=== PATIENT | male | born 1945 | race Caucasian/White ===

== ENCOUNTER 2019-11-17 08:44 | Emergency (ER) | payer MEDICARE ==
[2019-11-17] MEDS ORDERED: Alum Hydrox/Mag Hydrox/Simeth 15 ML, Lidocaine 2% 15 ML PO ONE ×2 (09:45)
[2019-11-17] MEDS ORDERED: Pantoprazole 40 MG Tab.CR ONE (09:48)
[2019-11-17 10:24] VITALS: BP 162/82; PULSE 71
== END 2019-11-17 10:15 | disposition home or self-care (01) ==
LOC: JP.ED 08:44
DX: K29.70 Gastritis, unspecified, without bleeding (principal); F17.210 Nicotine dependence, cigarettes, uncomplicated; I25.2 Old myocardial infarction
CPT/HCPCS: 36415; 80048; 83690; 85025; 99284; A9270

== ENCOUNTER 2019-12-15 06:58 | Day surgery (SDC) | payer MEDICARE ==
[~2019-12-15 06:58] MED LIST: Midazolam 1 MG/ML 2 ML SDV ONE; Propofol 200 MG/20 ML SDV ONE; fentaNYL 100 MCG/2 ML SDV ONE
[2019-12-15] MEDS ORDERED: Dextrose 5%-Lactated Ringers 1,000 ML IV SCH (07:30)
[2019-12-15 10:28] VITALS: BP 130/68; PULSE 62
--- NOTE | 2019-12-29 14:11 | OR ---
DATE OF PROCEDURE: 12/15/2019 SURGEON: Jame Lopez MD PREOPERATIVE DIAGNOSIS: Probable gastroesophageal reflux disease. POSTOPERATIVE DIAGNOSES: 1. 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 2. Moderate distal gastritis. OPERATIVE PROCEDURE: Esophagogastroduodenoscopy with: 1. Biopsies of esophagogastric junction for histologic evaluation. 2. Biopsies of antrum for CLOtest. ANESTHESIA: IV sedation. INDICATION FOR PROCEDURE: This is a 74-year-old male presenting with some worsening reflux. He was started on omeprazole in the last week and it is felt that this is helpful only marginally. The plan is to proceed with upper GI endoscopy with biopsies and/or dilation as indicated. Potential risks including bleeding and perforation were discussed, and the patient wishes to proceed. DETAILS OF PROCEDURE: The patient was taken to the operating room and placed in a left lateral decubitus position. IV sedation was administered after which the upper GI endoscope was passed orally through the length of the esophagus into the stomach with retroflexion view of the fundus and thereafter through the pyloric channel and into the junction of the 3rd and 4th portions of the duodenum. Findings included normal hypopharynx, larynx, upper esophageal sphincter, and esophageal body. 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 No stricturing or plaquing or gross evidence of neoplasia was seen. Within the stomach, there was some moderate distal gastritis without erosions or ulcers. The pyloric channel and the visualized portions of the duodenum were otherwise unremarkable. At this point, biopsies were obtained from the antrum and sent for CLOtest for H. pylori. Multiple biopsies were then obtained from the esophagogastric junction and sent for histologic evaluation. Minimal bleeding from the biopsy sites was seen and the procedure then concluded. We will continue the present medical management and see the patient back on 12/23/2019 to determine ongoing treatment at that time. Jame Lopez MD /[id number]
== END 2019-12-15 10:50 | disposition home or self-care (01) ==
LOC: JP.SDS 06:58
PROVIDERS: ATTEND Surgery
DX: K29.50 Unspecified chronic gastritis without bleeding (principal); K21.0 Gastro-esophageal reflux disease with esophagitis; K44.9 Diaphragmatic hernia without obstruction or gangrene; K31.89 Other diseases of stomach and duodenum; I10 Essential (primary) hypertension; F41.9 Anxiety disorder, unspecified; I25.10 Atherosclerotic heart disease of native coronary artery without angina pectoris; Z88.8 Allergy status to other drugs, medicaments and biological substances
CPT/HCPCS: 43239; 87081; 88305; J2250; J2704; J3010; J7121

== ENCOUNTER 2019-12-31 07:46 | Inpatient (IN) | payer MEDICARE ==
[2019-12-31] MEDS: Dextrose 5%-Lactated Ringers 1,000 ML IV SCH ×3 (06:55→19:50)
[~2019-12-31 07:46] MED LIST changes: +Acetaminophen 500 MG Tab ONE; +Acetaminophen 500 MG Tab PO ONE; +Albuterol 8 GM Inhaler (PTOM) INH ONE; +Bupivacaine 0.5%/EPINEPHrine 1:200,000 50 ML MDV ONE; +Dexamethasone 4 MG/ML SDV ONE; +Glycopyrrolate 0.2 MG/ML 5 ML MDV ONE; +Ketamine 50 MG in Sodium Chloride 0.9% 49.5 ML IV SCH; +Ketamine 500 MG/5 ML MDV IV SCH; -Midazolam 1 MG/ML 2 ML SDV ONE; +Neostigmine Methylsulfate 1 MG/ML 5 ML Syringe ONE; +Ondansetron 4 MG/2 ML SDV ONE; +Rocuronium 50 MG/5 ML Vial ONE; +Scopolamine 1.5 MG Transdermal Patch TOP SCH; +Succinylcholine 200 MG/10 ML MDV ONE; +ceFAZolin 2 GM in Premix Bag 1 BAG IV ONE; +fentaNYL 250 MCG/5 ML SDV ONE
[2019-12-31] MEDS ORDERED: Sodium Chloride 0.9% 10 ML ONE (07:47)
[2019-12-31] MEDS ORDERED: ePHEDrine 50 MG/ML SDV ONE (07:47)
[2019-12-31] MEDS: Scopolamine 1.5 MG Transdermal Patch ONE (08:51)
[2019-12-31] MEDS ORDERED: HYDROmorphone 0.5 MG/0.5 ML Syringe IVPUSH PRN (10:00)
[2019-12-31] MEDS ORDERED: HYDROmorphone 2 MG Tab PO PRN (10:00)
[2019-12-31] MEDS ORDERED: HYDROmorphone 1 MG/ML Syringe IV PRN (10:00)
[2019-12-31] MEDS ORDERED: Ondansetron 4 MG/2 ML SDV IVPUSH PRN (10:00)
[2019-12-31] MEDS ORDERED: hydrOXYzine HCL 100 MG/2 ML SDV IM PRN (10:00)
[2019-12-31] MEDS ORDERED: Albuterol 8 GM Inhaler INH PRN (10:03)
[2019-12-31] MEDS ORDERED: Pantoprazole 40 MG Vial IVPUSH SCH (11:00)
[2019-12-31] MEDS: Acetaminophen 500 MG Tab PO SCH ×2 (11:29→17:34)
[2019-12-31] MEDS: Metoclopramide 10 MG/2 ML SDV IVPUSH SCH ×2 (11:29→19:20)
[2019-12-31] MEDS: BUSPIRONE PO SCH ×4 (14:26→21:08)
[2019-12-31] MEDS: Simvastatin 20 MG Tab PO SCH (21:09)
[2020-01-01] MEDS: Acetaminophen 500 MG Tab PO SCH ×4 (00:42→18:06)
[2020-01-01] MEDS: Metoclopramide 10 MG/2 ML SDV IVPUSH SCH ×3 (04:39→19:53)
[2020-01-01] MEDS: Dextrose 5%-Lactated Ringers 1,000 ML IV SCH (04:47)
[2020-01-01] MEDS ORDERED: Ondansetron 4 MG Tab.DIS PO PRN (07:23)
--- NOTE | 2020-01-01 08:26 | PN ---
DATE OF SERVICE: 01/01/2020 SUBJECTIVE: Kedar Garcia is postoperative day #1 following a laparoscopic Jose fundoplication. He reports he is having no pain, tolerating a clear liquid diet well. Oral intake 780, urine output 1500. He has been up ambulating and vital signs have been stable. OBJECTIVE: GENERAL: Kedar Garcia is a pleasant 74-year-old male. He is alert and oriented, resting comfortably in bed. VITAL SIGNS: TPR at 04:41, 98.1; 77; 18; blood pressure 120/82. HEENT: Negative. NECK: Supple. HEART: Regular rate and rhythm. LUNGS: Clear. ABDOMEN: Dressing dry and intact. Abdominal binder is on. EXTREMITIES: Without peripheral edema. ASSESSMENT: Laparoscopic Jose fundoplication with repair of paraesophageal diaphragmatic hernia with mesh and excision of mediastinal lipoma for gastroesophageal reflux disease refractory to medical management with paraesophageal diaphragmatic hernia and mediastinal lipoma. Date of procedure: 12/31/2019. Surgeon: Jame Lopez MD. PLAN: 1. Dressing off, may shower. 2. Full liquid diet. 3. Zofran ODT 4 mg every 4 hours p.r.n. nausea. 4. Convert IV to saline lock if oral intake adequate. 5. Dietary consult for new laparoscopic Jose. 6. We will evaluate p.r.n. or in a.m. Elsa Zambrano PA-C /[id number]
[2020-01-01] MEDS: Aspirin 325 MG Tab.EC PO SCH (08:39)
[2020-01-01] MEDS: BUSPIRONE PO SCH ×6 (08:39→21:10)
[2020-01-01] MEDS: amLODIPine 5 MG Tab PO SCH (08:40)
[2020-01-01] MEDS: Losartan 50 MG Tab PO SCH (08:40)
[2020-01-01] MEDS: SCOPOLAMINE PATCH CHECK TOP SCH (08:41)
[2020-01-01] MEDS: Metoprolol Succinate 50 MG Tab.ER PO SCH (08:41)
[2020-01-01] MEDS: Scopolamine 1.5 MG Transdermal Patch ONE (09:20)
[2020-01-01] MEDS ORDERED: Pantoprazole 40 MG Delayed-Release Granules 1 Packet PO SCH (11:30)
[2020-01-01] MEDS: Simvastatin 20 MG Tab PO SCH (21:10)
[2020-01-02] MEDS: Acetaminophen 500 MG Tab PO SCH ×2 (00:24→07:27)
[2020-01-02 04:20] VITALS: BP 148/71
[2020-01-02] MEDS: Metoclopramide 10 MG/2 ML SDV IVPUSH SCH (04:20)
[2020-01-02] MEDS: Metoprolol Succinate 50 MG Tab.ER PO SCH (08:25)
[2020-01-02] MEDS: Aspirin 325 MG Tab.EC PO SCH (08:25)
[2020-01-02] MEDS: BUSPIRONE PO SCH ×2 (08:26)
[2020-01-02] MEDS: amLODIPine 5 MG Tab PO SCH (08:26)
[2020-01-02] MEDS: Losartan 50 MG Tab PO SCH (08:26)
[2020-01-02] MEDS: SCOPOLAMINE PATCH CHECK TOP SCH (08:27)
[2020-01-02 08:28] VITALS: PULSE 78
[2020-01-02] MEDS ORDERED: Silver Sulfadiazine 1% Crm 50 GM Tube TOP SCH (09:00)
--- NOTE | 2020-01-04 09:14 | DISCH ---
ADMISSION DIAGNOSES: 1. Gastroesophageal reflux disease refractory to medical management. 2. Essential hypertension. 3. General anxiety disease. 4. Peripheral vascular disease. 5. Coronary atherosclerosis. 6. Hypothyroidism. DISCHARGE DIAGNOSES: Laparoscopic Jose fundoplication with: 1. Repair of paraesophageal diaphragmatic hernia with mesh. 2. Excision of mediastinal lipoma. POSTOPERATIVE DIAGNOSES: 1. Gastroesophageal reflux disease refractory to medical management. 2. Paraesophageal diaphragmatic hernia. 3. Mediastinal lipoma. 4. Date of procedure: 12/31/2019. Surgeon: Jame Lopez MD. HISTORY: Kedar Garcia is a pleasant 74-year-old male who had gastroesophageal reflux disease refractory to medical management. After preoperative evaluation and discussion of possible risks and possible complications, he wished to proceed with surgical procedure. HOSPITAL COURSE: Kedar had his surgery on 12/31/2019. He had no operative complications. On postoperative day #1, he was started on a full liquid diet. He received dietary instruction. Oral intake was adequate that his IV was saline locked. Activity was good. He had no pain. On postoperative day #2, he was able to be discharged to home without any complications. PHYSICAL EXAMINATION: GENERAL: Kedar Garcia is a 74-year-old male. He is alert and orientated. VITAL SIGNS: Height is 5 feet 6.93 inches, weight is 172 pounds. TPR at 0418 is 97.8; 58; 18; blood pressure 148/71. HEENT: Negative. NECK: Supple. HEART: Regular rate and rhythm. LUNGS: Clear. ABDOMEN: Incisions look good. Sutures intact. He does have the tape burn on his right and left lateral abdominal areas, each about 1 inch x 1-1/2 inches. EXTREMITIES: Without peripheral edema. DISPOSITION: Discharged to home. CONDITION: Stable and improving. FOLLOWUP APPOINTMENT: With lEsa Zambrano PA-C, on 01/14/2020 at 9:15 a.m. NEW PRESCRIPTIONS: 1. Silvadene cream apply twice daily to tape pope. 2. Levsin 0.125 mg sublingual every 4 hours if needed for esophageal spasms. 3. To resume home medication: a. Albuterol inhaler 1 to 2 puffs for shortness of breath. b. Aspirin 325 mg p.o. daily. c. Atrovent 0.06% nasal spray, 2 sprays 3 times a day. d. Levothyroxine 75 mcg before breakfast. e. Cozaar 100 mg oral daily. f. Melatonin 3 mg oral at bedtime. g. Metoprolol-XL 100 mg oral daily. h. Multivitamin 1 tablet oral daily. i. Omeprazole 40 mg oral daily. j. Viagra 50 mg oral p.r.n. k. Simvastatin 40 mg at bedtime. l. Valsartan 80 mg oral daily. m. Amlodipine 5 mg oral daily. n. Buspar 15 mg oral b.i.d. DIET: Full liquid diet for 2 weeks. Drink 8 to 10 glasses of water a day. ACTIVITY: No lifting greater than 10 pounds for 2 weeks. Other activity: Walk at least 6 times daily. Driving: Do not drive for 1 week. Shower/bathing: May shower. DISCHARGE INSTRUCTIONS: 1. Notify provider if any fever, increased pain, swelling, redness, nausea, or vomiting. 2. Wound incision care; keep site clean and dry. 3. Wear an abdominal binder for 2 weeks and then as tolerated. 4. Use silvadene cream to tape pope, apply twice daily. SPECIAL INSTRUCTION: Use incentive spirometer 10 times every hour while awake.
--- NOTE | 2020-01-06 18:05 | OR ---
DATE OF PROCEDURE: 12/31/2019 SURGEON: Jame Lopez MD PREOPERATIVE DIAGNOSIS: Gastroesophageal reflux disease refractory to medical management. POSTOPERATIVE DIAGNOSES: 1. Gastroesophageal reflux disease refractory to medical management with associated paraesophageal diaphragmatic hernia. 2. Mediastinal lipoma. OPERATIVE PROCEDURES: 1. Laparoscopic Jose fundoplication with repair of paraesophageal diaphragmatic hernia with mesh (56098). 2. Excision of mediastinal lipoma (89952). ANESTHESIA: General. APARTMENT HOTEL MANAGER: Elsa Zambrano PA-C INDICATIONS FOR PROCEDURE: This is a 74-year-old male presenting with gastroesophageal reflux disease that has become refractory to medical management. After preoperative evaluation and discussion, he wished to proceed with a Jose fundoplication. Potential risks including bleeding, infection, injury to underlying viscera, problems with fundoplication such as dysphagia, gas-bloat syndrome, disorders of gastric emptying rate as well as possibility of incomplete relief of reflux symptoms were all reviewed, and the patient wishes to proceed. DETAILS OF PROCEDURE: The patient was taken to the operating room and after general endotracheal anesthesia was induced and placed in a lithotomy position, the abdomen was prepped and draped. 15 cm inferior and 5 cm left of the xiphoid process, a transverse incision was made. The peritoneal cavity entered under direct vision with an Optiview trocar, inflated to 15 mmHg pressure with CO2. Laparoscope was then reinserted. No underlying trocar insertion site injuries were seen. Following this, four additional trocars were placed across the upper and mid abdomen. General exploration was undertaken. Upon elevation of the liver, the patient was noted to have a significant paraesophageal component of the hernia with a prolapse of some perigastric fat, omentum, and the gastric fundus in the plane anterior portion esophagus. This was reduced and the peritoneum reflected downward and the crura then from the distal esophagus on each side and then a retroesophageal window constructed, all with the aid of a Harmonic scalpel. Some additional attachments to the esophagus were then freed up as well allowing roughly 5 cm intraabdominal esophageal length to be obtained. At this point, during the course of the dissection, mediastinal lipoma was encountered and to facilitate more adequate crural repair this was excised. The crural repair was then accomplished with some 0 Ethibond sutures, reinforced with PTFE pledgets. Due to the degree of the herniation, Phasix ST mesh was then used to augment the repair. This was cut in a horseshoe type pattern with the mesh overlying the crural repair and snugly onto the sides of the crura and was fixed with titanium tacking screws. The greater omentum was then divided away from the greater curvature of the stomach with Harmonic scalpel. This dissection continued proximally to include the short gastric vessels including the highest and posterior short gastric vessels. Good mobilization of the fundus resulted at this point and was retrieved through the retroesophageal window. Anesthesia then placed a guidewire orally through the length of the esophagus into the stomach and over this a 54-Pashto Savary dilator was placed and a three-stitch 2 cm fundoplication was accomplished with 0 Ethibond sutures, reinforced with PTFE pledgets. Each of the sutures included bites of the underlying esophagus to help fix it in position and two sutures were then placed bringing the fundoplication overlying diaphragm to help to fix it in position as well with the same stitch-pledget combination. At that point, no further problems were noted. Trocars were removed. Peritoneal cavity deflated. After that, the guidewire then removed and the fundoplication was then evaluated and found to be satisfactorily floppy. Prior to closure, bilateral transversus abdominis plane blocks were then placed and the skin was closed with 4-0 Vicryl skin stitch. The patient was taken to the recovery room in satisfactory condition. Physician clinical laboratory assistant, Elsa Zambrano, played an essential role in assisting in this case, helping to position the patient, retract structures as needed, as well as suturing and cutting sutures when indicated. Her presence improved patient safety and decreased the operative time. Jame Lopez MD /[id number]
== END 2020-01-02 09:06 | disposition home or self-care (01) | DRG 328 ==
LOC: JP.SDS 07:46 → JP.SDSSCHI 07:46 → JP.MS 09:00 → EDSTATUS 09:45
PROVIDERS: ADMIT Surgery; ATTEND Surgery
PROC: 0DV44ZZ Restriction of Esophagogastric Junction, Percutaneous Endoscopic Approach (ICD-10-PCS; principal; 2019-12-31)
PROC: 0BQT4ZZ Repair Diaphragm, Percutaneous Endoscopic Approach (ICD-10-PCS; 2019-12-31)
PROC: 0JB63ZZ Excision of Chest Subcutaneous Tissue and Fascia, Percutaneous Approach (ICD-10-PCS; 2019-12-31)
DX: K21.9 Gastro-esophageal reflux disease without esophagitis (principal); I10 Essential (primary) hypertension; F41.1 Generalized anxiety disorder; I73.9 Peripheral vascular disease, unspecified; I25.10 Atherosclerotic heart disease of native coronary artery without angina pectoris; E03.9 Hypothyroidism, unspecified; D17.1 Benign lipomatous neoplasm of skin and subcutaneous tissue of trunk; K44.9 Diaphragmatic hernia without obstruction or gangrene
CPT/HCPCS: 36415; 80053; 83735; 83880; 84100; 85027; 88304; 93010; 94640; 94762; A9270-GY; C1713; C1781; C9113; J0171; J0330; J0690; J1100; J2405; J2704; J2710; J2765; J2795; J3010; J3490; J7050; J7121

== ENCOUNTER 2021-09-08 07:46 | Day surgery (SDC) | payer MEDICARE ==
[~2021-09-08 07:46] MED LIST changes: -Acetaminophen 500 MG Tab ONE; -Acetaminophen 500 MG Tab PO ONE; -Albuterol 8 GM Inhaler (PTOM) INH ONE; -Bupivacaine 0.5%/EPINEPHrine 1:200,000 50 ML MDV ONE; -Dexamethasone 4 MG/ML SDV ONE; -Glycopyrrolate 0.2 MG/ML 5 ML MDV ONE; -Ketamine 50 MG in Sodium Chloride 0.9% 49.5 ML IV SCH; -Ketamine 500 MG/5 ML MDV IV SCH; +Midazolam 1 MG/ML 2 ML SDV ONE; -Neostigmine Methylsulfate 1 MG/ML 5 ML Syringe ONE; -Ondansetron 4 MG/2 ML SDV ONE; -Rocuronium 50 MG/5 ML Vial ONE; -Scopolamine 1.5 MG Transdermal Patch TOP SCH; -Succinylcholine 200 MG/10 ML MDV ONE; -ceFAZolin 2 GM in Premix Bag 1 BAG IV ONE; -fentaNYL 250 MCG/5 ML SDV ONE
[2021-09-08] MEDS ORDERED: Dextrose 5%-Lactated Ringers 1,000 ML IV SCH (08:15)
[2021-09-08] MEDS ORDERED: Pantoprazole 40 MG Vial IVPUSH ONE (10:21)
[2021-09-08 11:01] VITALS: BP 142/78; PULSE 61
== END 2021-09-08 11:14 | disposition home or self-care (01) ==
LOC: JP.SDS 07:46
PROVIDERS: ATTEND Surgery
DX: K22.70 Barrett's esophagus without dysplasia (principal); K21.9 Gastro-esophageal reflux disease without esophagitis; K44.9 Diaphragmatic hernia without obstruction or gangrene; K25.9 Gastric ulcer, unspecified as acute or chronic, without hemorrhage or perforation; I25.10 Atherosclerotic heart disease of native coronary artery without angina pectoris; I10 Essential (primary) hypertension; I73.9 Peripheral vascular disease, unspecified; E78.5 Hyperlipidemia, unspecified; Z88.8 Allergy status to other drugs, medicaments and biological substances
CPT/HCPCS: 87081; 88305; C9113; J2250; J2704; J3010; J7121

== ENCOUNTER 2023-09-03 08:11 | Day surgery (SDC) | payer MEDICARE ==
[~2023-09-03 08:11] MED LIST changes: -Midazolam 1 MG/ML 2 ML SDV ONE
[2023-09-03] MEDS ORDERED: Sodium Chloride 0.9% 1,000 ML IV SCH (08:45)
[2023-09-03 10:21] VITALS: BP 129/66; PULSE 55
== END 2023-09-03 10:39 ==
LOC: JP.SDS 08:11 → MERGE 09:30 → EDSEX 09:30 → JP.SDS 10:39
PROVIDERS: ATTEND Surgery
DX: Z12.11 Encounter for screening for malignant neoplasm of colon (principal); D12.2 Benign neoplasm of ascending colon; K63.5 Polyp of colon; K57.30 Diverticulosis of large intestine without perforation or abscess without bleeding; I25.10 Atherosclerotic heart disease of native coronary artery without angina pectoris; I10 Essential (primary) hypertension; K21.9 Gastro-esophageal reflux disease without esophagitis; Z86.010 Personal history of colon polyps
CPT/HCPCS: 00811; 45380; 45385; 88305; J2704; J3010